=== PATIENT | female | born 1960 | race Asian ===

== ENCOUNTER → 2017-02-22 | Outpatient (CLI) | payer BC ==
--- NOTE | 2017-02-22 16:07 | MAMMOGRAPHY REPORT ---
BILATERAL DIGITAL SCREENING MAMMOGRAM WITH CAD: 02/22/2017 CLINICAL HISTORY: Routine screening. Patient has no complaints. TECHNIQUE: Bilateral CC and MLO views were obtained. Current study was also evaluated with a Compute r Aided Detection (CAD) system. COMPARISON: Comparison is made to exams dated: 02/20/2016 mammogram, 01/30/2015 mammogram, 01/29/2014 ma mmogram, 12/28/2012 mammogram, 12/28/2011 mammogram, and 12/25/2010 mammogram - [facility]. BREAST COMPOSITION: The tissue of both breasts is extremely dense, which lowers the sensitivity of m ammography. FINDINGS: There is a small cluster of microcalcifications in the lower inner anterior left breast, f or which additional spot magnification views are recommended. There are a few benign rim calcifications elsewhere in the breasts. No other suspicious mass, archite ctural distortion or cluster of microcalcifications is seen. IMPRESSION: ACR BI-RADS CATEGORY 0: INCOMPLETE EVALUATION: NEED ADDITIONAL IMAGING EVALUATION The small cluster of microcalcifications in the lower inner left breast needs additional evaluation. The patient will be called to schedule an appointment. Approximately 10% of breast cancers are not detected with mammography. A negative mammographic report should not delay biopsy if a clinically suggestive mass is present. Martha Gracia M.D. ay/:02/22/2017 12:24:49 Casing Cleaner: Mary Ramirez, [facility] letter sent: Addl Imaging 0 BI-RADS Code: ACR BI-RADS Category 0: Incomplete Evaluation: Need Additional Imaging Evaluation
== END | disposition home or self-care (01) ==
LOC: C.MAMM 11:34
PROVIDERS: ATTEND Family Medicine
DX: Z12.31 Encounter for screening mammogram for malignant neoplasm of breast (principal); R92.0 Mammographic microcalcification found on diagnostic imaging of breast

== ENCOUNTER → 2017-02-25 | Outpatient (CLI) | payer BC ==
--- NOTE | 2017-02-25 11:57 | DIAGNOSTIC IMAGING REPORT ---
CHEST 2 VIEWS ROUTINE CLINICAL HISTORY: Chest pain. COMPARISON STUDY: Chest radiograph November 08, 2013. FINDINGS: Lung volumes are normal. Lungs are clear. No pneumothorax or pleural effusion is present. Pulmonary vascularity is normal. Cardiomediastinal silhouette is normal. The appearance of the chest is unchanged. IMPRESSION: No acute cardiopulmonary findings. Electronically signed by: Michele Roy M.D. 02/25/2017 11:55 AM Dictated Date/Time: 02/25/2017 11:55 AM
== END | disposition home or self-care (01) ==
LOC: C.RAD1850 11:45
PROVIDERS: ATTEND Family Medicine
DX: R07.9 Chest pain, unspecified (principal)

== ENCOUNTER → 2017-03-03 | Outpatient (CLI) | payer BC ==
--- NOTE | 2017-03-03 09:14 | DIAGNOSTIC IMAGING REPORT ---
ABD/PELVIS ORAL CONT ONLY CLINICAL HISTORY: 56 years-old Female presenting with 25 pound weight loss in the past 4 months, epigastric pain no history of surgery. TECHNIQUE: Multidetector CT of the abdomen and pelvis was performed after the administration of oral contrast only. IV contrast: None. A dose lowering technique was used consistent with the principles of ALARA (as low as reasonably achievable). COMPARISON: 07/23/2014. CT DOSE (mGy.cm): The estimated cumulative dose is 268.08 mGy.cm. FINDINGS: Retail Greeter topogram: Unremarkable. Lung bases: Minimal persistent linear opacities in the medial segment of the right middle lobe, likely scarring. 3 mm solid nodule at the anterobasal right lower lobe (series 3 image 38) disease, unchanged in size from prior. Normal heart size. No pericardial or pleural effusion. Liver: Few well-defined hypodensities at the right hepatic dome, indeterminate but possibly hepatic cysts or hamartomas. Normal liver density and morphology. Biliary: No gross biliary ductal dilatation allowing for noncontrast technique. Normal gallbladder. Pancreas: Normal. Spleen: Normal. Adrenal glands: Normal. Kidneys and ureters: No nephrolithiasis. No hydronephrosis. 1.5 cm hypodensity along the medial aspect of the right upper pole, indeterminate but possibly cyst. Ureters normal. Bladder: Normal. Pelvic organs: Uterus and ovaries normal. Bowel: Normal appendix. No bowel obstruction. Small duodenal diverticulum noted along the descending portion. Peritoneal cavity: No free fluid or intraperitoneal gas. Vasculature: Atherosclerosis of the normal caliber abdominal aorta. Lymph nodes: No lymphadenopathy allowing for noncontrast technique. Abdominal wall: Normal. Musculoskeletal: Degenerative changes of the sacroiliac joints. IMPRESSION: 1. Examination for malignancy limited due to noncontrast technique. No evidence of acute intra-abdominal pathology. Electronically signed by: Raymond Lombardo M.D. 03/03/2017 9:13 AM Dictated Date/Time: 03/03/2017 9:06 AM
== END | disposition home or self-care (01) ==
LOC: C.CTS 08:32
PROVIDERS: ATTEND Family Medicine
DX: R10.9 Unspecified abdominal pain (principal); K59.00 Constipation, unspecified; R63.4 Abnormal weight loss

== ENCOUNTER → 2017-03-05 | Outpatient (CLI) | payer BC ==
--- NOTE | 2017-03-05 14:32 | MAMMOGRAPHY REPORT ---
UNILATERAL LEFT DIGITAL DIAGNOSTIC MAMMOGRAM: 03/05/2017 CLINICAL HISTORY: Callback from screening mammogram for left breast calcifications. TECHNIQUE: Spot magnification left CC and ML views were obtained. COMPARISON: Comparison is made to exams dated: 02/22/2017 mammogram, 02/20/2016 mammogram, 01/30/2015 [place] mogram, 01/29/2014 mammogram, 12/28/2012 mammogram, and 12/28/2011 mammogram - [facility]. BREAST COMPOSITION: The tissue of the left breast is extremely dense, which lowers the sensitivity o f mammography. FINDINGS: Spot magnification views of the left breast demonstrate a small 1 mm cluster of predominant ly punctate calcifications in the left breast at approximately 9:00 anteriorly. On the lateral view the calcifications appear to be forming a [place], suggestive of developing rim calcification. The ca lcifications do not appear significantly changed compared to the 2016 exam. A benign rim-calcified o il cyst is seen posterior to this cluster on the ML view. The calcifications are probably benign and a follow-up is recommended in 6 months. IMPRESSION: ACR-BI-RADS CATEGORY 3: PROBABLY BENIGN Small 1 mm cluster of calcifications in the left 9:00 breast is probably benign and likely represents evolving dystrophic rim calcifications. Recommend follow-up diagnostic mammograms of the left breas t in 6 months to confirm stability on spot magnification views. The patient has been verbally notified of the results. Approximately 10% of breast cancers are not detected with mammography. A negative mammographic report should not delay biopsy if a clinically suggestive mass is present. Leigh Ford M.D. ah/:03/05/2017 10:50:56 Instrument Maker And Repairer: Mary TO(Kb)(M), [facility] letter sent: Follow Up Recommended 3 BI-RADS Code: ACR-BI-RADS Category 3: Probably Benign
== END | disposition home or self-care (01) ==
LOC: C.MAMM 10:26
PROVIDERS: ATTEND Family Medicine
DX: R92.1 Mammographic calcification found on diagnostic imaging of breast (principal)

== ENCOUNTER → 2017-03-23 | Outpatient (CLI) | payer BC ==
--- NOTE | 2017-03-23 11:17 | DIAGNOSTIC IMAGING REPORT ---
ABDOMEN COMPLETE (US) CLINICAL HISTORY: WEIGHT LOSS, HEARTBURN, EPIGASTRIC PAIN COMPARISON STUDY: CT of the abdomen and pelvis March 03, 2017. FINDINGS: Liver is sonographically normal with the exception of an 8 mm right hepatic lobe cyst. There are no gallstones. No biliary ductal dilatation is present. The pancreatic body is normal. Head and tail are partially obscured. Size of the spleen is normal. There is no hydronephrosis. The right kidney measures 9.8 cm and the left measures 11 cm. There is a 1.6 cm right renal cyst. No ascites is present. Caliber of the abdominal aorta is normal. There is mild atherosclerotic plaque of the abdominal aorta. IMPRESSION: 1. No gallstones or biliary ductal dilatation. 2. 1.6 cm right renal cyst. 3. No hydronephrosis. Electronically signed by: Michele Roy M.D. 03/23/2017 11:15 AM Dictated Date/Time: 03/23/2017 11:13 AM
== END | disposition home or self-care (01) ==
LOC: C.ULTR 10:19
PROVIDERS: ATTEND Internal Medicine Gastroenterology
DX: R12 Heartburn (principal); R63.4 Abnormal weight loss; N28.1 Cyst of kidney, acquired

== ENCOUNTER → 2017-09-06 | Outpatient (CLI) | payer BC ==
--- NOTE | 2017-09-06 14:51 | MAMMOGRAPHY REPORT ---
BILATERAL DIGITAL DIAGNOSTIC MAMMOGRAM TOMOSYNTHESIS WITH CAD AND TARGETED RIGHT ULTRASOUND: 8 CLINICAL HISTORY: Patient presents for follow-up of a tiny grouping of punctate microcalcifications i n the medial left breast. During this appointment the patient also reported new focal pain in the ri ght breast and therefore bilateral mammography was performed. TECHNIQUE: Bilateral breast tomosynthesis in addition to standard 2D mammography was performed. Spot magnification left CC and ML views were also obtained. Current study was also evaluated with a Comp uter Aided Detection (CAD) system. COMPARISON: Comparison is made to exams dated: 03/05/2017 mammogram, 02/22/2017 mammogram, 02/20/2016 [place] mogram, 01/30/2015 mammogram, 01/29/2014 mammogram, and 12/28/2012 mammogram - [facility]. BREAST COMPOSITION: The tissue of both breasts is extremely dense, which lowers the sensitivity of m ammography. FINDINGS: A square-shaped pain marker was placed on the skin of the 1:00 right breast, denoting the a fabienne of pain reported by the patient. No obvious new masses, calcifications or architectural distorti on are seen in the area of concern in the approximate 1:00 right breast. Overall, no suspicious mass , architectural distortion, asymmetry or cluster of microcalcifications is seen throughout the entire right breast. Further evaluation with ultrasound was performed in the area of pain. The spot magnification views of the left breast redemonstrate a tiny grouping of punctate microcalcif ications in the approximate 9:00 anterior breast, measuring 1.5 mm. These have not significantly debbie nged in number or configuration comparing to the spot magnification views obtained on 03/05/2017 and could represent benign fibrocystic change. However, longer stability is needed. On the full field l eft MLO view, there is a lobulated asymmetry versus partially circumscribed mass in the far superior breast which appears somewhat similar to the prior 2016, 2014 and 2011 mammogram is suggesting it cou ld represent normal overlapping tissue although further evaluation with ultrasound was performed. Targeted ultrasound was performed in both breasts, with particular attention to the area of pain poin pranav out by the patient, in the 1:00 to 2:00 right breast, 3 cm from the nipple, and throughout the [place] perior left breast. In the area of pain in the 1:00-2:00 right breast, sonographically normal tissue is seen without a discrete solid or cystic mass. No focal skin thickening or drainable fluid collec tion. Throughout the superior left breast, sonographically normal dense tissue is seen without a suspicious solid or cystic mass. IMPRESSION: ACR-BI-RADS CATEGORY 3: PROBABLY BENIGN, TARGETED ULTRASOUND ACR-BI-RADS CATEGORY 3: PRO BABLY BENIGN 1. A small, 1.5 mm grouping of punctate microcalcifications in the approximate 9:00 left breast is s table compared to the prior spot magnification views obtained 03/05/2017. As long-term stability is not demonstrated comparing back to prior mammograms, another short interval follow-up left diagnostic tomosynthesis mammogram including spot magnification views is recommended. 2. An asymmetry versus partially circumscribed and obscured lobulated mass in the superior left [address] on the MLO view most likely represents normal overlapping tissue as no suspicious sonographic stefanie elate was seen. 3. The patient reported focal pain in the upper inner quadrant of the right breast during this diagn ostic appointment and therefore diagnostic mammography and ultrasound was performed, which reveals no suspicious mammographic or targeted sonographic abnormality. Therefore, continued clinical follow-u p is recommended, as biopsy of a clinically suspicious lesion should not be precluded by negative talib ging. These results and recommendations were discussed with the patient at the time of the exam. She tenta tively scheduled a follow-up appointment prior to leaving our department. It should be noted that bi lateral mammography is due in February 2018. Approximately 10% of breast cancers are not detected with mammography. A negative mammographic report should not delay biopsy if a clinically suggestive mass is present. Martha Gracia M.D. ay/:09/06/2017 12:22:34 Manufacturing Applications Engineer: Eleonora TO(Kb)(M), [facility] letter sent: Follow Up Recommended 3 BI-RADS Code: ACR-BI-RADS Category 3: Probably Benign Ultrasound BI-RADS: ACR-BI-RADS Category 3: Pr obably Benign
== END | disposition home or self-care (01) ==
LOC: C.MAMM 11:13
PROVIDERS: ATTEND Family Medicine
DX: N64.4 Mastodynia (principal); R92.0 Mammographic microcalcification found on diagnostic imaging of breast

== ENCOUNTER → 2018-03-07 | Outpatient (CLI) | payer BC ==
--- NOTE | 2018-03-08 06:58 | MAMMOGRAPHY REPORT ---
BILATERAL DIGITAL DIAGNOSTIC MAMMOGRAM TOMOSYNTHESIS WITH CAD: 03/07/2018 CLINICAL HISTORY: 57-year-old woman presents for continued close follow-up of the small grouping of m icrocalcifications in the approximate 9:00 left breast and also due for annual bilateral mammography. TECHNIQUE: Bilateral CC and MLO 2D and tomosynthesis images, spot magnification left CC and ML views were obtained. Current study was also evaluated with a Computer Aided Detection (CAD) system. COMPARISON: Comparison is made to exams dated: 09/06/2017 mammogram, 03/05/2017 mammogram, 02/22/2017 ma mmogram, 02/20/2016 mammogram, 01/30/2015 mammogram, and 01/29/2014 mammogram - [facility]. BREAST COMPOSITION: The tissue of both breasts is extremely dense, which lowers the sensitivity of ma mmography. FINDINGS: The glandular tissue pattern is similar to prior mammograms, including stable asymmetries i n the superior left breast on the MLO view. There are a few bilateral benign rim calcifications. No obvious new masses, asymmetries or areas of architectural distortion are identified bilaterally. Spot magnification views of the left breast redemonstrate a tiny, 1.1 mm grouping of punctate/amorpho us microcalcifications in the 9:00 anterior left breast, that are unchanged dating back to at least based on prior spot magnification views. No new suspicious grouping or cluster of calcifica tions are identified bilaterally. Another 12 month follow-up left diagnostic mammogram including spo t magnification views is recommended to ensure at least 2 years of stability to confirm benignity. IMPRESSION: ACR-BI-RADS CATEGORY 3: PROBABLY BENIGN 1. Stable bilateral mammograms including a tiny 1.1 mm grouping of punctate/amorphous microcalcifica tions in the 9:00 anterior left breast. Another close follow-up left diagnostic mammogram including spot magnification views is recommended in 12 months to ensure at least 2 years of stability to confi rm benignity. Annual right mammography will also be due at that time. These results and recommendations were discussed with the patient at the time of the exam. Some breast cancers are not detected with mammography. A negative mammographic report should not kyrie y biopsy if a clinically suggestive mass is present. Martha Gracia M.D. ay/:03/07/2018 12:01:25 Pulping Machine Operator: Mary Ramirez, [facility] letter sent: Follow Up Recommended 3 BI-RADS Code: ACR-BI-RADS Category 3: Probably Benign
== END | disposition home or self-care (01) ==
LOC: C.MAMM 11:12
PROVIDERS: ATTEND Family Medicine
DX: R92.8 Other abnormal and inconclusive findings on diagnostic imaging of breast (principal); R92.0 Mammographic microcalcification found on diagnostic imaging of breast